=== PATIENT | male | born 1990 | race Caucasian/White ===

== ENCOUNTER 2020-02-22 13:37 | Inpatient (IN) | payer BC ==
[2020-02-22] MEDS ORDERED: HYDROmorphone 1 MG/ML Syringe ONE (13:47)
[2020-02-22] MEDS ORDERED: HYDROmorphone 1 MG/ML Syringe IVPUSH ONE ×2 (13:49→14:56)
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
[2020-02-22 14:29] LABS: BLOOD UREA NITROGEN,BUN 18 mg/dL (7.0-18.0); CARBON DIOXIDE,CO2 24.7 mmol/L (21.0-32.0); CHLORIDE,CL 105 mmol/L (98-107); GLUCOSE RANDOM 129 mg/dL (74-106); SODIUM,NA 141 mmol/L (136-148)
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
[2020-02-22] MEDS ORDERED: Iopamidol 755 MG/ML 200 ML Multipack Bottle IVPUSH ONE (14:33)
--- NOTE | 2020-02-22 14:57 | CT ---
INDICATION: Trauma COMPARISON: none TECHNIQUE: A CT volumetric acquisition was performed of the brain without IV contrast. Please note that all CT scans at this facility use dose modulation, iterative reconstruction, and/or weight-based dosing when appropriate to reduce radiation dose to as low as reasonably achievable. FINDINGS: The CT images reveal a normal appearance of the cerebral ventricles and basal cisterns. There is no evidence of intracranial hemorrhage, tissue infarction or mass effect. The mastoid air cells and middle ear cavities are clear. The calvarium appears intact. There is normal aeration of the visualized paranasal sinuses. IMPRESSION: Negative head CT. Please note that all CT scans at this facility use dose modulation, iterative reconstruction, and/or weight-based dosing when appropriate to reduce radiation dose to as low as reasonably achievable. Dictated by Luis Prieto MD @ Feb 22 2020 2:54PM Signed by Dr. Luis Prieto @ Feb 22 2020 2:55PM
--- NOTE | 2020-02-22 14:59 | CT ---
INDICATION: Trauma TECHNIQUE: CT cervical spine without contrast. COMPARISON: None FINDINGS: The cervical vertebral bodies are normal in height and alignment. Disc spaces and facet joints. Visualized sinuses clear. Prevertebral soft tissues in the upper neck are normal. Subcutaneous emphysema located inferiorly on the right. There is a displaced right clavicle fracture. A nondisplaced fracture of the right posterior 2nd rib. A small right apical pneumothorax is suspected. IMPRESSION: No cervical spine fracture. Displaced and comminuted right clavicle fracture. Nondisplaced right posterior 2nd rib fracture. Small right apical pneumothorax and adjacent right-sided subcutaneous emphysema in the right thoracic inlet. Please note that all CT scans at this facility use dose modulation, iterative reconstruction, and/or weight-based dosing when appropriate to reduce radiation dose to as low as reasonably achievable. Dictated by Luis Prieto MD @ Feb 22 2020 2:55PM Signed by Dr. Luis Prieto @ Feb 22 2020 2:58PM
--- NOTE | 2020-02-22 15:08 | CT ---
INDICATION: Trauma. TECHNIQUE: CT scan of the chest, abdomen, and pelvis with 100 cc of Isovue-370 given intravenously. FINDINGS: Chest: No mediastinal or hilar adenopathy. No axillary adenopathy. No central pulmonary emboli. No aneurysmal dilatation or dissection of the thoracic aorta. No mediastinal hematoma. The lungs show subpleural airspace opacities in the right lung apex. 1.1 cm pulmonary nodule along the right minor fissure best seen on image 38 of series 201. Small right-sided pleural effusion. Fracture of the posterior aspect of the right 2nd rib. Fracture of the right 1st costochondral junction. Fractures of the anterior aspects of the right 2nd, 3rd, and 4th ribs. Fracture of the lateral aspect of the right 8th rib. Subcutaneous air over the right chest wall. Small amount of pneumomediastinum. Abdomen and pelvis: No focal abnormalities identified in the visualized portions of the liver, spleen, pancreas, adrenal glands, and kidneys. No hydronephrosis. No obstructing uroliths. The GI tract is incompletely distended but shows no gross abnormalities. The stomach and GE junction are not well assessed. Normal appendix. No retroperitoneal, pelvic sidewall, or mesenteric adenopathy. No free intraperitoneal air. Impression : 1. Right upper and lateral rib fractures. 2. Airspace opacities in the right lung apex likely representing pulmonary hemorrhage. 3. Subcutaneous air over the right chest wall with a small amount of pneumomediastinum. No pneumothorax. 4. 1.1 cm pulmonary nodule along the right minor fissure. Recommend follow-up chest CT scan in 2 months to determine if this is related to the trauma. Consider pulmonology consultation. 5. No traumatic injury in the abdomen or pelvis identified. Please note that all CT scans at this facility use dose modulation, iterative reconstruction, and/or weight-based dosing when appropriate to reduce radiation dose to as low as reasonably achievable. Dictated by Rodrigo Noble MD @ Feb 22 2020 2:53PM Signed by Dr. Rodrigo Noble @ Feb 22 2020 3:07PM
--- NOTE | 2020-02-22 15:10 | CT ---
INDICATION: Trauma. TECHNIQUE: CT scan of the chest, abdomen, and pelvis with 100 cc of Isovue-370 given intravenously. FINDINGS: Chest: No mediastinal or hilar adenopathy. No axillary adenopathy. No central pulmonary emboli. No aneurysmal dilatation or dissection of the thoracic aorta. No mediastinal hematoma. The lungs show subpleural airspace opacities in the right lung apex. 1.1 cm pulmonary nodule along the right minor fissure best seen on image 38 of series 201. Small right-sided pleural effusion. Fracture of the posterior aspect of the right 2nd rib. Fracture of the right 1st costochondral junction. Fractures of the anterior aspects of the right 2nd, 3rd, and 4th ribs. Fracture of the lateral aspect of the right 8th rib. Subcutaneous air over the right chest wall. Small amount of pneumomediastinum. Abdomen and pelvis: No focal abnormalities identified in the visualized portions of the liver, spleen, pancreas, adrenal glands, and kidneys. No hydronephrosis. No obstructing uroliths. The GI tract is incompletely distended but shows no gross abnormalities. The stomach and GE junction are not well assessed. Normal appendix. No retroperitoneal, pelvic sidewall, or mesenteric adenopathy. No free intraperitoneal air. Impression : 1. Right upper and lateral rib fractures. 2. Airspace opacities in the right lung apex likely representing pulmonary hemorrhage. 3. Subcutaneous air over the right chest wall with a small amount of pneumomediastinum. No pneumothorax. 4. 1.1 cm pulmonary nodule along the right minor fissure. Recommend follow-up chest CT scan in 2 months to determine if this is related to the trauma. Consider pulmonology consultation. 5. No traumatic injury in the abdomen or pelvis identified. Dictated by Rodrigo Noble MD @ 02/22/2020 3:08:32 PM Please note that all CT scans at this facility use dose modulation, iterative reconstruction, and/or weight-based dosing when appropriate to reduce radiation dose to as low as reasonably achievable. Dictated by: Rodrigo Noble MD @ 02/22/2020 15:08:38 (Electronically Signed)
[2020-02-22] MEDS ORDERED: Sodium Chloride 0.9% 2.5 ML Syringe FLUSH PRN (16:42)
[2020-02-22] MEDS ORDERED: Ondansetron 4 MG/2 ML SDV IVPUSH PRN (16:42)
[2020-02-22] MEDS ORDERED: Sodium Chloride 0.9% 10 ML Syringe FLUSH PRN (16:42)
[2020-02-22] MEDS ORDERED: HYDROmorphone 2 MG/ML Syringe IVPUSH PRN (16:42)
[2020-02-22] MEDS ORDERED: diphenhydrAMINE 50 MG/ML SDV IVPUSH PRN (16:42)
[2020-02-22] MEDS ORDERED: Sodium Chloride 0.9% 10 ML SDV IV PRN (16:42)
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
[2020-02-22] MEDS: Lactated Ringers 1,000 ML IV SCH (17:17)
--- NOTE | 2020-02-22 17:44 | CR ---
INDICATION: f/u pneumohemothorax, pulm contusions TECHNIQUE: Chest 1 view COMPARISON: Chest x-ray and CT same day FINDINGS: Small right basilar pneumothorax is similar to the CT. Multiple fractures better appreciated on CT although the displaced right clavicle fracture is again noted. Left lung clear. Parenchymal densities within the right lower lobe again noted. IMPRESSION: Stable appearance of the small right basilar hemopneumothorax. Dictated by Luis Prieto MD @ Feb 22 2020 5:40PM Signed by Dr. Luis Prieto @ Feb 22 2020 5:43PM
[2020-02-22] MEDS: Ketorolac 30 MG/ML SDV IVPUSH SCH ×2 (17:46→23:15)
[2020-02-22] MEDS: Acetaminophen/oxyCODONE 325-5 MG Tab PO PRN (21:39)
[2020-02-22] MEDS: Cyclobenzaprine 5 MG Tab PO SCH (21:39)
[2020-02-23] MEDS: Lactated Ringers 1,000 ML IV SCH (02:53)
[2020-02-23] MEDS: Ketorolac 30 MG/ML SDV IVPUSH SCH ×2 (05:18→10:44)
[2020-02-23] MEDS: Cyclobenzaprine 5 MG Tab PO SCH ×3 (05:44→22:50)
[2020-02-23] MEDS: Acetaminophen/oxyCODONE 325-5 MG Tab PO PRN ×3 (07:50→22:54)
[2020-02-23] MEDS: Polyethylene Glycol 3350 Powder 17 GM Packet PO SCH (08:11)
--- NOTE | 2020-02-23 08:52 | CR ---
Chest: Portable view of the chest was obtained. Comparison: No prior chest imaging is available. Heart size and mediastinum are normal. Right mid clavicle fracture is noted. Very minimal apical pneumothorax is noted on the right side. Increased density within right mid-lower lung most likely representing pulmonary contusion. Left lung shows no acute parenchymal change. Minimal left basilar atelectasis is noted. Impression: 1. Minimal right apical pneumothorax. 2. Probable pulmonary contusions within the right mid and lower lung. 3. Mild left basilar atelectasis. 4. Displaced right clavicle fracture. Diagnostic code #3 Study was dictated in MDT
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
[2020-02-24] MEDS: Acetaminophen/oxyCODONE 325-5 MG Tab PO PRN (04:32)
--- NOTE | 2020-02-24 05:20 | CR ---
INDICATION: Follow up pneumohemothorax, right clavicle fracture, rib fracture TECHNIQUE: Chest radiograph 1 view COMPARISON: 02/23/2020, CT 02/22/2020 FINDINGS: Mediastinum: The mediastinum is normal in appearance. The heart silhouette is normal in size and morphology. Lung: Small lung volumes are present with bibasilar consolidation which is likely due to atelectasis. The pulmonary nodule in the right lung base seen on prior CT is not visualized by radiography. A small anterior right basilar pneumothorax seen on prior CT is not well visualized by radiography. No sign of pleural effusion seen. Bone and Soft tissue: A severely displaced right clavicular fracture is noted without interval change. IMPRESSIONS: 1. Small lung volumes are present with bibasilar consolidation which is likely due to atelectasis. The appearance is similar to prior exam. 2. A small anterior right basilar pneumothorax seen on prior CT is not well visualized by radiography. Dictated by Balaji Francisco MD @ 02/24/2020 5:18:19 AM Dictated by: Balaji Francisco MD @ 02/24/2020 05:18:25 (Electronically Signed)
[2020-02-24] MEDS: Cyclobenzaprine 5 MG Tab PO SCH (05:45)
[2020-02-24] MEDS: Polyethylene Glycol 3350 Powder 17 GM Packet PO SCH (08:51)
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
== END 2020-02-24 10:45 | disposition home or self-care (01) | DRG 135 ==
LOC: MW.ED 13:37 → MW.ICU 17:05 → MW.MS 02-23 19:51
PROVIDERS: ADMIT Surgery; ATTEND Surgery
DX: S27.2XXA Traumatic hemopneumothorax, initial encounter (principal); V86.56XA Driver of dirt bike or motor/cross bike injured in nontraffic accident, initial encounter; S42.021A Displaced fracture of shaft of right clavicle, initial encounter for closed fracture; S22.41XA Multiple fractures of ribs, right side, initial encounter for closed fracture; T79.7XXA Traumatic subcutaneous emphysema, initial encounter; Z90.89 Acquired absence of other organs; Z20.828 Contact with and (suspected) exposure to other viral communicable diseases
CPT/HCPCS: 36415; 70450; 70450-26; 71045; 71045-26; 71260; 71260-26; 72125; 72125-26; 74177; 74177-26; 80053; 80305-QW; 80307; 81001; 84484; 85025; 85027; 93005; 96361; 96374; 96376; 99285-25; 99291; A9270-GY; G0390; J1170; J1885; J7120; Q9967; U0002